=== PATIENT | female | born 2005 | race Caucasian/White ===

== ENCOUNTER 2025-04-28 15:26 | Emergency (ER) | payer OTHER, SELFPAY ==
[2025-04-28 15:36] VITALS: BP 90/60
--- NOTE | 2025-04-28 16:02 | ED.GENMED ---
History of Present Illness
General
Chief Complaint: Abdominal Symptoms
Source: patient and family
Exam Limitations: none
Time Seen by Provider: 04/28/25 15:51
History of Present Illness
History of Present Illness:
Patient is a 19-year-old female who presents to the ER for evaluation of abdominal pain. Patient started with generalized abdominal pain last night after eating dinner. She also complains of pain to her flank region bilaterally. She did vomit 8
times this morning. She still complains of pain. Her last bowel movement was yesterday. Last menses started yesterday as well. She denies a urinary frequency urgency. She is not sexually active. She denies any vaginal discharge.
Phy Exam
General Physical Exam
General Presentation: no apparent distress
General age: appears stated age
General Skin: warm and dry
General Habitus: normal
General Mental: alert
General Hydration: dry mucous membranes
Gastrointestinal Exam
Gastrointestinal Exam: soft and other (tender throughout )
Neurological Exam
Neurological Exam: alert and oriented x3
Musculoskeletal Exam
Musculoskeletal Exam: full ROM
Skin Exam
Skin Exam: normal color and warm/dry
Psychiatric Exam
Psychiatric Exam: normal mood/affect
Course
Orders/Labs/Results
Orders:
Orders
04/28/25 16:00
IV Insert/Care/Rem.- Treatment PRN
0.9% Sodium Chloride 1000 ml [Nss] 1,000 ml IV BOLUS
Iohexol [Omnipaque] See Protocol PO NOW STA
Ondansetron Injectable [Zofran] 4 mg IV NOW STA
Test Result ONCE
04/28/25 16:01
CT Abd/pel W Iv And Oral Contr Urgent
Comment:
Reason For Exam: abd pain
Ketorolac [Toradol] 15 mg IV NOW STA
04/28/25 16:03
Complete Blood Count/With Diff Urgent
Comprehensive Metabolic Panel Urgent
HCG, Serum Qualitative Screen Urgent
Lipase Urgent
04/28/25 17:32
Vital Signs- Treatment ONCE
Frequency: Once
04/28/25 19:48
Ondansetron Injectable [Zofran] 4 mg IV NOW STA
04/28/25 19:49
Ondansetron Injectable [Zofran] 4 mg .ROUTE .K-MED ONE
04/28/25 20:02
Urinalysis Reflex To Culture Urgent
Date Specimen was Collected: 04/28/25
Time Specimen was Collected: 19:53
Urine Microscopic Reflex Cult Urgent
Abnormal Lab Results
04/28/25 04/28/25
16:03 20:02
WBC 12.1 H 10^3/uL
(4.8-10.8)
Hct 47.4 H %
(37.0-47.0)
MCHC 32.9 L g/dL
(33.0-37.0)
MPV 10.7 H fL
(7.4-10.4)
Absolute Neuts (auto) 11.4 H 10^3/uL
(1.4-6.5)
Absolute Lymphs (auto) 0.2 L 10^3/uL
(1.2-3.4)
Neutrophils % 94.3 H %
(42.2-75.2)
Lymphocytes % 1.6 L %
(20.5-51.1)
BUN 18 H mg/dl
(7-17)
Glucose 120 H mg/dl
(70-99)
Lipase 532 H U/L
(23-300)
Urine Ketones 2+ A
(Negative)
Ur Occult Blood Reflex 2+ A
(Negative)
Urine Bacteria (Reflex) Few A
(Negative)
Urine Albumin (Reflex) 2+ A
(Neg - Trace)
04/28/25 16:03
04/28/25 16:03
Vital Signs
Initial and Last Documented VS:
Initial Vital Signs
Pulse Resp BP Pulse Ox
130 18 90/60 95
04/28/25 15:36 04/28/25 15:36 04/28/25 15:36 04/28/25 15:36
Last Documented Vital Signs
Temp Pulse Resp BP Pulse Ox
98.5 F 73 18 104/55 100
04/28/25 19:25 04/28/25 18:00 04/28/25 18:00 04/28/25 18:00 04/28/25 18:00
MDM/Problems Addressed
Differential Diagnosis Includes:
Not limited to appendicitis, viral syndrome, less likely biliary colic, UTI
MDM/Problems Addressed:
Patient is a 19-year-old female with abdominal pain since last night she did vomit this morning. She denies any urinary symptoms but does have some back pain. Patient has generalized abdominal pain nonspecific tenderness on exam CAT scan ordered
and pending at this time. Care of patient this time transferred to DR Gates, urine pending. lipase mildly elevated white count minimally elevatd. pt received fluids /toradol/zofran
1950: CAT scan negative for acute findings however there is a mild to moderate colonic fecal burden in the descending colon and rectosigmoid colon consistent with constipation. Will plan for discharge with MiraLAX however will await urine
*Radiology
Radiology exam reviewed: radiology read reviewed
*Pulse Oximetry
SaO2: 95
Oxygen Mode of Delivery: Room air
Patient hypoxic: no
*Critical Care Note
Total Time (30-74mins, 75-104mins- exclusive of procedures): Not Applicable
ED Attending Note
-
Portions of this chart may have been created with voice recognition software.� Occasional wrong word or��sound alike� substitutions may have occurred due to the inherent limitations of voice recognition software.
Discharge Plan
Departure
Patient Disposition: Home (Routine Discharge)
Date of Disposition: 04/28/25
Time of Disposition: 20:19
Patient with high blood pressure during this ER visit?: No
Condition: Fair
Covid-19: Not Applicable
Discharge Problem:
Constipation
Instructions: Constipation, Adult (DC)
Referrals:
Analisa Chacon CRNP [Family Provider, Family Practice]
Stand Alone Forms: Back to School
Activity Restrictions/Additional Instructions:
As discussed start MiraLAX daily. Increase water intake increase fiber intake, fresh fruits and vegetables berries, high fiber cereals.
Follow-up with your family doctor in the next 2 days for reevaluation. Return for any worsening of symptoms
Interventions
Interventions:
*Risk Screen - Suicide Last Done: 04/28/25 15:36
*General Assessment Last Done: 04/28/25 15:36
*Neglect/Abuse Screening Last Done: 04/28/25 16:26
*ED COVID-19 Vaccine History Last Done: 04/28/25 15:36
*ED Influenza Vaccine History Last Done: 04/28/25 15:36
*Nursing Disposition Last Done: 04/28/25 20:26
TU-Hdapsb-Imuqcvskvz Assessment Last Done: 04/28/25 16:11
Discharge Date and Time
Discharge Date/Time: 04/28/25 20:27
Print Language: LATVIAN
[2025-04-28] MEDS: ZOFRAN 4 MG IV ×2 (16:06→19:56)
[2025-04-28] MEDS: NSS 1000 IV (16:06)
[2025-04-28] MEDS: OMNIPAQUE 50 ML PO (16:06)
[2025-04-28] MEDS: TORADOL 15 MG IV (16:06)
[2025-04-28 16:25] LABS: Hematocrit 47.4 % (37.0-47.0); Hemoglobin 15.6 g/dL (12.0-16.0); Mean Corp Hgb Conc. 32.9 g/dL (33.0-37.0); Mean Corpuscular Volume 92.9 fL (81.0-99.0); Nucleated Red Blood Cells % 0 %; Platelet Count 228 10^3/uL (130-400); Red Cell Dist. Width 11.9 % (11.5-14.5)
[2025-04-28 16:44] LABS: HCG, Serum Qualitative Screen Negative
[2025-04-28 16:50] LABS: ALT (SGPT) 21 U/L (0-35); AST (SGOT) 22 U/L (14-36); Albumin 4.8 g/dl (3.5-5.0); Alkaline Phosphatase 75 U/L (38-126); Blood Urea Nitrogen 18 mg/dl (7-17); Calcium 9.4 mg/dl (8.4-10.2); Carbon Dioxide 25 mmol/L (22-30); Chloride 106 mmol/L (98-107); Glucose 120 mg/dl (70-99); Lipase 532 U/L (23-300); Potassium 4.2 mmol/L (3.5-5.1); Sodium 137 mmol/L (135-145); Total Protein 7.9 g/dl (6.3-8.2); eGFR > 60.00
[2025-04-28 18:00] VITALS: BP 104/55
[2025-04-28 20:07] LABS: Urine Character Clear (Clear)
[2025-04-28 20:16] LABS: Urine Squamous Cell >30 /LPF (Few)
[2025-04-28 20:17] LABS: Urine Red Blood Cell 0-2 /HPF (0-2); Urine White Cell 0-2 /HPF (0-5)
== END 2025-04-28 20:27 | disposition home or self-care (01) ==
LOC: EMR 15:26
PROVIDERS: Nurse Practitioner; EMERGENCY PHYSICIAN Student in an Organized Health Care Education/Training Program; FAMILY PHYSICIAN Family Medicine
DX: K59.00 Constipation, unspecified (principal)
CPT/HCPCS: 99284; 96374; 96375; 96361; 74177; 80053; 81003; 81015; 83690; 84703; 85025; Q9967